=== PATIENT | male | born 1965 | race Caucasian/White ===

== ENCOUNTER 2019-04-07 20:11 | Emergency (ER) | payer SELFPAY ==
[~2019-04-07] VITALS: Ht 175.3 cm; Wt 59.0 kg
[2019-04-07 20:16] VITALS: BP 134/88
== END 2019-04-07 20:18 | disposition left against medical advice (07) ==
LOC: MED 20:11
DX: M25.551 Pain in right hip (principal); Z53.21 Procedure and treatment not carried out due to patient leaving prior to being seen by health care provider